=== PATIENT | male | born 1965 | race Caucasian/White ===

== ENCOUNTER → 2023-09-24 06:27 | Day surgery (SDC) | payer BC, SELFPAY ==
[2023-09-24 10:54] LABS: Glucose - Point of Care 130 mg/dl (70-99)
== END ==
LOC: GI 06:27
PROVIDERS: ATTENDING PHYSICIAN Internal Medicine Gastroenterology
DX: Z12.11 Encounter for screening for malignant neoplasm of colon (principal); Z86.010 Personal history of colon polyps; K64.8 Other hemorrhoids; D12.2 Benign neoplasm of ascending colon; D12.4 Benign neoplasm of descending colon; D12.5 Benign neoplasm of sigmoid colon
CPT/HCPCS: 45385; 45380; 88305; 82962